=== PATIENT | male | born 1990 | race Caucasian/White ===

== ENCOUNTER 2016-08-25 14:19 | Emergency (ER) | payer OTHER ==
[2016-08-25 14:43] VITALS: BP 134/78; PULSE 49; RESP 16; TEMP 98.1; O2SAT 99
--- NOTE | 2016-08-25 15:47 | UCPHY ---
H & P Time Seen by Provider: 08/25/16 14:56 Patient Type: New HPI/ROS: This patient slammed the door on his left ring finger at work last night. He reports moderate pain to the distal phalanx with a subungual hematoma. He reports no significant difficulty moving the finger. No other injuries. He has had partial relief from tjbr-xuv-cyolanj analgesics ROS: No numbness. Minimal bony pain. 5 point ROS is otherwise negative Past Medical/Surgical History: Otherwise healthy Smoking Status: Never smoked Physical Exam: Physical Exam Vital signs are normal. General: No acute distress Eyes: Pupils equal and react to light. Extraocular motions are intact. Lungs: No respiratory distress. Cardiac: Brisk capillary refill is intact throughout. Skin: No rash or pallor. Extremities: Atraumatic and normal except for his left ring finger. That exam is notable for a subungual hematoma a the comprises the entire with the length of the nail. There is distal phalanx tenderness-moderate. No malrotation. He retains full range of motion despite the subungual hematoma. No significant pain at the de appear PIP joint. Other extremities and hands are normal. Neuro: Alert and oriented x3 with no sensorimotor deficits. Initial differential diagnosis: Subungual hematoma, contusion, rule out finger fracture Constitutional: Initial Vital Signs Temperature (C) 36.7 C 08/25/16 14:41 Heart Rate 49 L 08/25/16 14:41 Respiratory Rate 16 08/25/16 14:41 Blood Pressure 134/78 H 08/25/16 14:41 O2 Sat (%) 99 08/25/16 14:41 O2 Delivery Mode Room Air MDM/Departure - MDM Diagnostics: Finger x-ray: Negative for fracture by my interpretation Procedures: Finger nail trephination After verbal consent using cautery definition, chlorhexidine scrub, sterile conditions I easily made a hole in the patient's fingernail with release of blood and relief in pain. Wound was then cleaned again by our tech Alfredo, bandage and stack splint were applied. There were no complications. - Depart Disposition: Home, Routine, Self-Care Clinical Impression: Subungual hematoma of fingernail Qualifiers: Encounter type: initial encounter Qualified Code(s): S60.10XA - Contusion of unspecified finger with damage to nail, initial encounter Condition: Good Instructions: Subungual Hematoma (ED) Additional Instructions: Diagnosis: Subungual hematoma of finger nail Plan: Clean wound daily with warm soapy water Band-Aid and stack splint at work Follow up with work comp clinic for recheck in 5 days or so Ibuprofen Tylenol for pain if needed Referrals: NONE *PRIMARY CARE P,. [Primary Care Provider] - As per Instructions - PQRS PQRS Measurement: NA
== END 2016-08-25 16:05 | disposition home or self-care (01) ==
LOC: CED 14:19
PROC: 0H9QXZZ Drainage of Finger Nail, External Approach (ICD-10-PCS; principal; 2016-08-25)
DX: S60.142A Contusion of left ring finger with damage to nail, initial encounter (principal); W23.1XXA Caught, crushed, jammed, or pinched between stationary objects, initial encounter; Y99.0 Civilian activity done for income or pay
CPT/HCPCS: 73140-PO; G0463-PO